=== PATIENT | female | born 1955 | race Caucasian/White ===

== ENCOUNTER 2020-12-19 10:34 | Inpatient (IN) | payer MEDICARE, OTHER ==
[~2020-12-19] VITALS: Ht 152.4 cm; Wt 75.3 kg
[~2020-12-19 10:34] MED LIST: DSS100 PO; PERCT PO
[2020-12-19] MEDS ORDERED: HYDROCODONE/ACETAMINOPHEN 5-325 MG TABLET PO ONE (12:00)
[2020-12-19] MEDS ORDERED: ALBUTEROL SULFATE 2.5 MG/0.5 ML NEB SOLUTION NEB PRN (14:15)
[2020-12-19] MEDS ORDERED: MORPHINE SULFATE 10 MG/ML SYRINGE IVP PRN (14:15)
[2020-12-19] MEDS ORDERED: BISACODYL 10 MG RECTAL RECTAL SUPPOSITORY PR PRN (14:15)
[2020-12-19] MEDS ORDERED: DOCUSATE SODIUM 100 MG CAPSULE PO PRN (14:15)
[2020-12-19] MEDS ORDERED: MAGNESIUM HYDROXIDE SUSPENSION 30 ML UDCUP PO PRN (14:15)
[2020-12-19] MEDS ORDERED: 0.9% SODIUM CHLORIDE 10 ML SYRINGE IVP PRN ×2 (14:15)
[2020-12-19] MEDS ORDERED: ACETAMINOPHEN 325 MG TABLET PO PRN (14:15)
[2020-12-19] MEDS ORDERED: IPRATROPIUM BROMIDE 0.5 MG/2.5 ML NEB SOLUTION NEB PRN (14:15)
[2020-12-19] MEDS ORDERED: HydrALAZINE HCL 20 MG/ML VIAL IVP PRN ×2 (14:15→21:45)
[2020-12-19] MEDS ORDERED: ONDANSETRON HCL 4 MG/2 ML VIAL IVP ONE (14:15)
[2020-12-19] MEDS ORDERED: ONDANSETRON HCL 4 MG/2 ML VIAL IVP PRN (14:15)
[2020-12-19] MEDS ORDERED: MORPHINE SULFATE 4 MG/ML SYRINGE IVP ONE (14:15)
[2020-12-19 14:35] LABS: BASOPHILS % (AUTO) 0.2 % (0.0-2.0); EOSINOPHILS % (AUTO) 0.3 % (1.0-6.0); HEMATOCRIT 43.5 % (36-46); HEMOGLOBIN 14.8 g/dL (12.0-16.0); LYMPHOCYTES # (AUTO) 1.3 K/uL (1.0-4.8); LYMPHOCYTES % (AUTO) 11.1 % (22.0-44.0); MEAN CORPUSCULAR VOLUME 91 fL (80-100); MONOCYTES # (AUTO) 0.6 K/uL (0.1-1.0); MONOCYTES % (AUTO) 5.7 % (2.0-9.0); NEUTROPHILS # (AUTO) 9.3 K/uL (1.8-7.7); NEUTROPHILS % (AUTO) 82.7 % (40.0-70.0); PLATELET COUNT (AUTO) 242 K/uL (150-450); RED BLOOD CELL COUNT(AUTO) 4.79 MIL/uL (4.00-5.20); RED CELL DISTRIBUTION WIDTH 13.4 % (11.5-14.5)
[2020-12-19 14:37] LABS: COVID AG,FIA SOURCE NASOPHARYNGEAL
[2020-12-19 14:50] LABS: PROTHROMBIN TIME 10.9 SEC (9.4-11.6)
[2020-12-19] MEDS: PANTOPRAZOLE SODIUM 40 MG DR TABLET PO SCH (14:50)
[2020-12-19 14:57] LABS: ANION GAP 13 mmol/L (8-16); CALCIUM, TOTAL 9.2 mg/dL (8.8-10.5); CARBON DIOXIDE 22 mmol/L (22-29); CHLORIDE 102 mmol/L (98-107); CREATININE 0.75 mg/dL (0.60-1.30); GLOMERULAR FILTR. RATE CALC > 60 mL/min (>60); GLUCOSE,RANDOM 139 mg/dL (70-110); POTASSIUM 3.7 mmol/L (3.5-5.1); SODIUM SERUM 137 mmol/L (136-145); UREA NITROGEN, BLOOD 14 mg/dL (7-18)
[2020-12-19 15:02] LABS: ALANINE AMINOTRANSFERASE 45 U/L (12-78); ALBUMIN 4.1 g/dL (3.4-5.0); ALKALINE PHOSPHATASE 85 U/L (46-116); ASPARTATE AMINOTRANSFERASE 27 U/L (15-37); BILIRUBIN,TOTAL 0.9 mg/dL (0.1-1.0); TOTAL PROTEIN, SERUM 7.8 g/dL (6.4-8.2)
[2020-12-19 16:09] VITALS: BP 126/67
[2020-12-19 19:56] VITALS: BP 139/75
[2020-12-19] MEDS: MORPHINE SULFATE 2 MG/ML SYRINGE IVP PRN (20:57)
[2020-12-19 23:13] VITALS: BP 134/68
[2020-12-20 05:32] VITALS: BP 135/78
[2020-12-20] MEDS: MORPHINE SULFATE 2 MG/ML SYRINGE IVP PRN ×2 (05:50→10:16)
[2020-12-20 07:07] LABS: BASOPHILS % (AUTO) 0.1 % (0.0-2.0); EOSINOPHILS % (AUTO) 1.1 % (1.0-6.0); HEMATOCRIT 41.1 % (36-46); HEMOGLOBIN 14.2 g/dL (12.0-16.0); LYMPHOCYTES % (AUTO) 23.3 % (22.0-44.0); MEAN CORPUSCULAR HEMOGLOBIN 31.2 pg (26.0-34.0); MEAN CORPUSCULAR HGB CONC 34.5 G/dL (31.0-37.0); MEAN CORPUSCULAR VOLUME 90 fL (80-100); MONOCYTES # (AUTO) 0.8 K/uL (0.1-1.0); MONOCYTES % (AUTO) 9.1 % (2.0-9.0); NEUTROPHILS # (AUTO) 5.7 K/uL (1.8-7.7); NEUTROPHILS % (AUTO) 66.4 % (40.0-70.0); PLATELET COUNT (AUTO) 248 K/uL (150-450); RED BLOOD CELL COUNT(AUTO) 4.55 MIL/uL (4.00-5.20); RED CELL DISTRIBUTION WIDTH 13.2 % (11.5-14.5)
[2020-12-20 07:36] VITALS: BP 136/68
[2020-12-20 07:40] LABS: ALANINE AMINOTRANSFERASE 39 U/L (12-78); ALBUMIN 3.4 g/dL (3.4-5.0); ALKALINE PHOSPHATASE 68 U/L (46-116); ANION GAP 6 mmol/L (8-16); ASPARTATE AMINOTRANSFERASE 23 U/L (15-37); BILIRUBIN,TOTAL 1.3 mg/dL (0.1-1.0); CALCIUM, TOTAL 8.8 mg/dL (8.8-10.5); CARBON DIOXIDE 28 mmol/L (22-29); CHLORIDE 102 mmol/L (98-107); GLOMERULAR FILTR. RATE CALC > 60 mL/min (>60); GLUCOSE,RANDOM 134 mg/dL (70-110); POTASSIUM 4.2 mmol/L (3.5-5.1); SODIUM SERUM 136 mmol/L (136-145); TOTAL PROTEIN, SERUM 7.1 g/dL (6.4-8.2); UREA NITROGEN, BLOOD 19 mg/dL (7-18)
[2020-12-20] MEDS: PANTOPRAZOLE SODIUM 40 MG DR TABLET PO SCH (09:00)
[2020-12-20] MEDS ORDERED: VANCOMYCIN HCL 1 GM/VIAL ONE ×3 (11:54→15:10)
[2020-12-20] MEDS ORDERED: MICROFIBRILLAR COLLAGEN 1 GM PACKAGE TP ONE ×2 (11:54→14:07)
[2020-12-20] MEDS ORDERED: MUPIROCIN CALCIUM 2% 22 GM OINTMENT ONE ×2 (11:54→14:07)
[2020-12-20] MEDS ORDERED: SODIUM CHLORIDE 0.9% 1,000 ML ONE (11:55)
[2020-12-20] MEDS ORDERED: RINGERS SOLUTION,LACTATED 1,000 ML IV ONE ×2 (13:30→15:58)
[2020-12-20] MEDS ORDERED: BUPIVACAINE HCL/PF 0.25% 30 ML VIAL ONE (14:07)
[2020-12-20] MEDS ORDERED: BUPIVACAINE LIPOSOME/PF 1.3%-13.3MG/ML SUSPENSION 20 ML VIAL INJ ONE (14:15)
[2020-12-20] MEDS ORDERED: ACETAMINOPHEN 1000 MG/ISO-OSM 100 ML IV ONE (14:45)
[2020-12-20] MEDS ORDERED: SODIUM CHLORIDE 0.9% 0 ML ONE (15:10)
[2020-12-20] MEDS ORDERED: SODIUM CHLORIDE 0.9% 10 ML ONE (15:10)
[2020-12-20] MEDS ORDERED: SODIUM CHLORIDE 0.9% 0 ML IV ONE (15:10)
[2020-12-20] MEDS ORDERED: SUGAMMADEX SODIUM 200 MG/2 ML VIAL IVP ONE (15:37)
[2020-12-20] MEDS ORDERED: HYDROmorphone 2 MG/ML VIAL IVP PRN (16:15)
[2020-12-20] MEDS ORDERED: FentaNYL CITRATE PF 100 MCG/2 ML VIAL IVP PRN (16:15)
[2020-12-20] MEDS ORDERED: MEPERIDINE-PF 25 MG/ML VIAL IVP PRN (16:15)
[2020-12-20] MEDS ORDERED: HYDROmorphone 2 MG/ML VIAL ONE (16:34)
[2020-12-20 17:00] VITALS: BP 137/85
[2020-12-20 19:52] VITALS: BP 141/67
[2020-12-20] MEDS: OXYGEN THERAPY IH SCH (20:00)
[2020-12-20] MEDS ORDERED: CeFAZolin 2 GM/DEXTROSE 50 ML IV ONE (23:00)
[2020-12-21] MEDS ORDERED: VANCOMYCIN HCL 1 GM/D5% WATER 200 ML IV ONE
[2020-12-21 00:35] VITALS: BP 128/75
[2020-12-21] MEDS ORDERED: DEXAMETHASONE SOD PHOS 4 MG/ML VIAL IVP ONE (04:34)
[2020-12-21] MEDS ORDERED: LIDOCAINE/PF 2% 5 ML SYRINGE IVP ONE (04:34)
[2020-12-21] MEDS ORDERED: FentaNYL CITRATE PF 100 MCG/2 ML VIAL IVP ONE (04:34)
[2020-12-21] MEDS ORDERED: ONDANSETRON HCL 4 MG/2 ML VIAL IVP ONE (04:34)
[2020-12-21] MEDS ORDERED: METOCLOPRAMIDE HCL 5 MG/ML 2 ML VIAL IVP ONE (04:34)
[2020-12-21] MEDS ORDERED: PROPOFOL 1% 20 ML VIAL IVP ONE (04:34)
[2020-12-21] MEDS ORDERED: MIDAZOLAM HCL 2 MG/2 ML VIAL IVP ONE (04:34)
[2020-12-21 04:55] VITALS: BP 142/73
[2020-12-21] MEDS: OXYGEN THERAPY IH SCH (08:00)
[2020-12-21 08:32] VITALS: BP 152/70
[2020-12-21] MEDS: PANTOPRAZOLE SODIUM 40 MG DR TABLET PO SCH (09:37)
[2020-12-21 12:08] VITALS: BP 132/63
[2020-12-21 16:24] VITALS: BP 130/65
[2020-12-21 20:50] VITALS: BP 121/67
[2020-12-22] VITALS (7 sets, daily range): BP systolic 112–130; BP diastolic 60–71
[2020-12-22] MEDS: OXYGEN THERAPY IH SCH (08:00)
[2020-12-22] MEDS: ASPIRIN 81 MG CHEWABLE TABLET PO SCH (08:25)
[2020-12-22] MEDS: PANTOPRAZOLE SODIUM 40 MG DR TABLET PO SCH (08:25)
[2020-12-22] MEDS ORDERED: ASPI-1198 PO (12:34)
[2020-12-22] MEDS ORDERED: OXYC-38 PO (12:34)
[2020-12-22] MEDS: MORPHINE SULFATE 2 MG/ML SYRINGE IVP PRN (17:18)
[2020-12-23 00:08] VITALS: BP 126/70
[2020-12-23 05:05] VITALS: BP 139/80
[2020-12-23] MEDS: ASPIRIN 81 MG CHEWABLE TABLET PO SCH (07:53)
[2020-12-23] MEDS: PANTOPRAZOLE SODIUM 40 MG DR TABLET PO SCH (07:54)
[2020-12-23 08:08] VITALS: BP 140/77
== END 2020-12-23 12:30 | disposition home health service (06) | DRG 511 ==
LOC: EMS 12:00 → 6S 14:04
PROVIDERS: ADMIT Internal Medicine; ATTEND Internal Medicine
PROC: 2W3BX1Z Immobilization of Left Upper Arm using Splint (ICD-10-PCS; 2020-12-20)
PROC: 0PSJ04Z Reposition Left Radius with Internal Fixation Device, Open Approach (ICD-10-PCS; principal; 2020-12-20 15:00)
DX: S52.572A Other intraarticular fracture of lower end of left radius, initial encounter for closed fracture (principal); R65.10 Systemic inflammatory response syndrome (SIRS) of non-infectious origin without acute organ dysfunction; M25.042 Hemarthrosis, left hand; S82.402A Unspecified fracture of shaft of left fibula, initial encounter for closed fracture; V89.2XXA Person injured in unspecified motor-vehicle accident, traffic, initial encounter; Y93.89 Activity, other specified; Y92.410 Unspecified street and highway as the place of occurrence of the external cause; Z90.710 Acquired absence of both cervix and uterus; S50.12XA Contusion of left forearm, initial encounter; Z79.82 Long term (current) use of aspirin; Z20.822 Contact with and (suspected) exposure to COVID-19; Z88.8 Allergy status to other drugs, medicaments and biological substances; Y99.8 Other external cause status
CPT/HCPCS: 87081; 87426; 93005; 97110; 97116; 97162; 97165; 97530; 97535; 99285; A9575; C9290; J0131; J0360; J1100; J1170; J2250; J2270; J2405; J2704; J2765; J3010; J3370; J3490; J7030; J7050; J7120; 36415-L1; 36415-TC; 71045-TC; C1716

== ENCOUNTER → 2020-12-28 | Outpatient (CLI) | payer MEDICARE ==
[~2020-12-28] MED LIST changes: +ASPI-1198 PO; -DSS100 PO; +OXYC-38 PO; -PERCT PO
== END | disposition home or self-care (01) ==
LOC: RADPV 12:52
PROVIDERS: ATTEND Orthopaedic Surgery
DX: S52.572D Other intraarticular fracture of lower end of left radius, subsequent encounter for closed fracture with routine healing (principal); S82.402D Unspecified fracture of shaft of left fibula, subsequent encounter for closed fracture with routine healing; X58.XXXD Exposure to other specified factors, subsequent encounter
CPT/HCPCS: 73110-TC; 73562-TC; 73590-TC